=== PATIENT | male | born 1970 | race Caucasian/White ===

== ENCOUNTER 2016-08-22 20:58 | Emergency (ER) | payer SELFPAY ==
[~2016-08-22 20:58] MED LIST: NO MEDICATIONS
[2016-08-22 21:28] LABS: INFLUENZA A NEG (NEG); INFLUENZA B NEG (NEG)
== END 2016-08-22 22:19 | disposition home or self-care (01) ==
LOC: SED 20:58
PROVIDERS: Physician Assistant
DX: J20.9 Acute bronchitis, unspecified (principal); J06.9 Acute upper respiratory infection, unspecified; R03.0 Elevated blood-pressure reading, without diagnosis of hypertension; Z87.891 Personal history of nicotine dependence
CPT/HCPCS: 87804; 99282; 99283